=== PATIENT | female | born 1960 | race Caucasian/White ===

== ENCOUNTER 2021-11-24 16:27 | Emergency (ER) | payer OTHER, SELFPAY ==
[2021-11-24 16:34] VITALS: BP 157/101; PULSE 87; TEMP 37.1; O2SAT 95; BMI 33.1
--- NOTE | 2021-11-24 17:00 | ED_ITS ---
HPI - Dental/Oral General Chief complaint: Dental/Oral/Mouth Injury/Pain Stated complaint: Sinus infection, abscessed tooth Time Seen by Provider: 11/24/21 16:38 History of Present Illness HPI Narrative: This 61-year-old female comes in reporting dental pain and generalized malaise. She went to her dentist 2 or 3 days ago and had x-rays which showed evidence of a dental abscess. The maxillary sinus above the affected tooth also had some fluid in it. This was a tooth that had previously head a root canal but the dentist thought it may not have been completely removed. The dentist stated that she did not know how to treat the sinusitis symptoms. She received a prescription for Zithromax. She has begun taking this medicine but then felt nauseated and increased generalized malaise. She does not report any fevers or lightheadedness. She states that her dental pain has improved a little bit since taking this medicine. She arrives here with normal vital signs and blood pressure that is a bit elevated. Related Data Home Medications Medication Instructions Recorded Confirmed aspirin 81 mg tablet,delayed 81 mg PO DAILY 11/24/21 11/24/21 release (Adult Low Dose Aspirin) losartan 25 mg tablet (Cozaar) 25 mg PO DAILY 11/24/21 11/24/21 metoprolol succinate 25 mg PO DAILY 11/24/21 11/24/21 Previous Rx's Medication Instructions Recorded cefuroxime axetil 500 mg tablet 500 mg PO BID 10 days #20 tabs 11/24/21 ondansetron HCl 4 mg tablet 4 mg PO Q6-8H PRN nausea and 11/24/21 vomiting #14 tabs Allergies Allergy/AdvReac Type Severity Reaction Status Date / Time Latex, Natural Rubber Allergy Unknown Verified 11/24/21 16:43 levofloxacin [From Levaquin] Allergy Unknown Verified 11/24/21 16:43 metoclopramide [From Reglan] Allergy Unknown Verified 11/24/21 16:43 Penicillins Allergy Unknown Verified 11/24/21 16:43 Adhesives Allergy Unknown Uncoded 11/24/21 16:43 Review of Systems Status of ROS: Reports: 10 or more systems reviewed and unremarkable except as noted in History and below Narrative: Constitutional: No fevers, no weight gain or loss. Eyes: No discharge. No vision changes. HENT: No congestion, no sore throat, no ear pain. Dental pain due to a dental abscess and some evidence on x-ray of sinusitis. Cardiovascular: No chest pain, no palpitations. Respiratory: No shortness of breath, no wheezes, no cough. Gastrointestinal: No abdominal pain, no vomiting, no diarrhea. Genitourinary: No dysuria, no hematuria. Musculoskeletal: Normal range of motion. Skin: No rashes, no pruritis. Neurological: No dizziness, weakness, sensory change, speech change. Endo/Heme/Allergies: No bruising or bleeding. No polydipsia. Pysch: no suicidality, no anxiety, no insomnia. All other systems reviewed and are negative. PFSH [facility], [facility] Social History Smoking Status: Never smoker Do you use any of these nicotine containing products: None Second hand tobacco smoke exposure: No How often do you have a drink containing alcohol: never How often do you have six or more drinks on one occasion: Never AUDIT-C Alcohol total score: 0 Non-prescribed substance use: denies use Exam Narrative: Exam Narrative: Constitutional: Well-developed, well-nourished, no acute distress. HEENT: Normocephalic, atraumatic. No external sign of swelling of the right cheek or of the tissues around the affected tooth in the right upper row. Neck: Normal range of motion. Nontender. Supple. Heart: Regular. No murmurs. Normal rate. Intact distal pulses. Lungs: Clear to auscultation. No chest discomfort. No wheezes, rhonchi, or rales. Abdomen: Normal bowel sounds. Nontender. No rebound tenderness. Genitalia: Deferred. Back: No midline tenderness. Normal range of motion. Extremities: Normal range of motion. No injury. Skin: Intact. No rash. Warm. No erythema or pallor. Neurologic: No altered sensation. No weakness. Alert and oriented. Psychiatric: No suicidality. No anxiety or depression. No insomnia. Nursing notes and vitals signs are reviewed. Const: Vital Signs, click to edit/add: Vital Signs - 24 hr 11/24/21 16:34 Temperature 98.8 F Pulse Rate [Right Pulse Oximeter] 87 Blood Pressure [Le ft Upper Arm] 157/101 H Pulse Oximetry 95 Oxygen Delivery Me thod Room Air Course Vital Signs Vital signs: Initial Vital Signs Temperature 98.8 F 11/24/21 16:34 Temperature Source Temporal Artery Scan 11/24/21 16:34 Pulse Rate 87 11/24/21 16:34 Blood Pressure 157/101 H 11/24/21 16:34 Blood Pressure Mean 119 11/24/21 16:34 Blood Pressure Position Sitting 11/24/21 16:34 Pulse Oximetry 95 11/24/21 16:34 Oxygen Delivery Method 11/24/21 16:34 Vital Signs Temperature 98.8 F 11/24/21 16:34 Pulse Rate 87 11/24/21 16:34 Blood Pressure 157/101 H 11/24/21 16:34 Pulse Oximetry 95 11/24/21 16:34 Oxygen Delivery Method 11/24/21 16:34 Temperature 98.8 F 11/24/21 16:34 Pulse Rate 87 11/24/21 16:34 Blood Pressure 157/101 H 11/24/21 16:34 Pulse Oximetry 95 11/24/21 16:34 Oxygen Delivery Method 11/24/21 16:34 MDM - Dental/Oral MDM Narrative Medical decision making narrative: This patient comes in with photos of images done at the dentist of her teeth in the right upper row that does show an abscess around the root of the tooth. Additionally there is some fluid in the maxillary sinus seen on this x-ray image. The patient was prescribed Zithromax but states that she has had some nausea and generalized malaise after starting that medicine. Lab results today returned with normal findings in every way. She is not showing any signs of more serious disease. She does have a follow-up appointment with an charger but this is not occurring yet for a couple months. I did prescribe Ceftin for a little more broad-spectrum coverage along with some Zofran that may help with any nausea adverse effects. Lab Data Labs: Lab Results 11/24/21 11/24/21 Range/Units 17:10 17:10 WBC 7.09 (4.50-11.00) K/uL RBC 4.49 (4.00-5.20) m/uL Hgb 14.3 (12.0-16.0) gm/dL Hct 40.7 (33.0-51.0) % MCV 91 (80-100) fL MCH 32 (26-34) pg MCHC 35 (32-36) gm/dL RDW Coeff of Kevin 11.6 (11.5-15.5) % Plt Count 278 (140-440) K/uL Neut % (Auto) 67.1 (42.0-72.0) % Lymph % (Auto) 26.4 (20-44) % [place] % (Auto) 4.8 (0.0-11.0) % Eos % (Auto) 1.1 (0.0-7.0) % Baso % (Auto) 0.3 (0.0-3.0) % Neut # (Auto) 4.76 (1.7-7.0) K/uL Lymph # (Auto) 1.87 (0.90-2.90) K/uL [place] # (Auto) 0.30 (0.00-0.90) K/UL Eos # (Auto) 0.08 (0.00-0.50) K/uL Baso # (Auto) 0.02 (0.00-0.30) K/uL Abs Immat Gran (auto) 0.02 (0.00-0.30) K/uL Sodium 139 (135-149) mmol/L Potassium 4.2 (3.6-5.1) mmol/L Chloride 101 (96-114) mmol/L Carbon Dioxide 27 (20-32) mmol/L BUN 17 (7-30) mg/dL Creatinine 0.7 (0.5-1.5) mg/dL Estimated Creat Clear 73.80 Estimated GFR 99 ml/min Glucose 125 H (60-115) mg/dL Calcium 9.6 (8.4-10.6) mg/dL Discharge Plan Discharge Clinical Impression: Sinusitis, Dental abscess Condition: Stable Instructions: Dental Abscess (ED) Additional Instructions: Take medication as prescribed. Follow-up with dentist as needed and scheduled or return if worsening. Prescriptions: New cefuroxime axetil 500 mg tablet 500 mg PO BID 10 Days Qty: 20 0RF ondansetron HCl 4 mg tablet 4 mg PO Q6-8H PRN (Reason: nausea and vomiting) Qty: 14 0RF No Action losartan [Cozaar] 25 mg tablet 25 mg PO DAILY metoprolol succinate 25 mg PO DAILY aspirin [Adult Low Dose Aspirin] 81 mg tablet,delayed release (DR/EC) 81 mg PO DAILY Follow Up/Referrals: Mary Ann Echevarria MD [Referring] - Stand Alone Forms: MyHealth Info Instructions
[2021-11-24 17:22] LABS: Basophils Absolute Auto 0.02 K/uL (0.00-0.30); Basophils Percent Auto 0.3 % (0.0-3.0); Eosinophils Absolute Auto 0.08 K/uL (0.00-0.50); Eosinophils Percent Auto 1.1 % (0.0-7.0); Hematocrit 40.7 % (33.0-51.0); Hemoglobin* 14.3 gm/dL (12.0-16.0); Immature Granulocytes Abs Auto 0.02 K/uL (0.00-0.30); Lymphocytes Absolute Auto 1.87 K/uL (0.90-2.90); Lymphocytes Percent Auto 26.4 % (20-44); Mean Corpuscular HGB Conc 35 gm/dL (32-36); Mean Corpuscular Hemoglobin 32 pg (26-34); Mean Corpuscular Volume 91 fL (80-100); Monocytes Percent Auto 4.8 % (0.0-11.0); Neutrophils Absolute Auto 4.76 K/uL (1.7-7.0); Neutrophils Percent Auto 67.1 % (42.0-72.0); Platelet Count* 278 K/uL (140-440); RDW Coefficient of Variation % 11.6 % (11.5-15.5); Red Blood Count 4.49 m/uL (4.00-5.20); White Blood Count* 7.09 K/uL (4.50-11.00)
[2021-11-24 17:27] LABS: Slide Review Reflex No
[2021-11-24 17:42] LABS: Chloride* 101 mmol/L (96-114); Potassium* 4.2 mmol/L (3.6-5.1); Sodium* 139 mmol/L (135-149)
[2021-11-24 17:45] LABS: Blood Urea Nitrogen* 17 mg/dL (7-30); Carbon Dioxide* 27 mmol/L (20-32); Creatinine* 0.7 mg/dL (0.5-1.5); Estimated Glomerular Filt Rate 99 ml/min; Glucose* 125 mg/dL (60-115)
[2021-11-24 17:46] LABS: Calcium* 9.6 mg/dL (8.4-10.6)
== END 2021-11-24 18:11 | disposition home or self-care (01) ==
PROVIDERS: Emergency Provider Emergency Medicine Emergency Medical Services
DX: K04.7 Periapical abscess without sinus (principal)
CPT/HCPCS: 36415; 80048; 85025; 99283; 99284